=== PATIENT | female | born 1985 | race Two or more races ===

== ENCOUNTER 2019-04-22 01:53 | Emergency (ER) | payer SELFPAY ==
[~2019-04-22] VITALS: Ht 157.5 cm; Wt 74.8 kg
--- NOTE | 2019-04-22 02:15 | NUR ---
ED Nurse Note: Walk-in patient presents with complaints of difficulty breathing for the past two days. Patient reports cough x 2 weeks. ERMD informed, will continue.
[2019-04-22 02:16] VITALS: BP 136/89
--- NOTE | 2019-04-22 02:23 | Emergency Room Report ---
History of Present Illness General Chief Complaint: Upper Respiratory Illness Source: Patient Present Illness HPI Is a 33-year-old female with no past medical history patient presents with complaint shortness of breath. Onset around midnight, which is about 2 hours prior to arrival. She said that she has cough and runny nose for last couple days. Occasion she said she get wheezing but that resolved quickly. No diagnosis of asthma. No history of asthma as a kid. Worse with inspiration. Audible wheezing. Worse with exertion. Better with rest. No recent antibiotics. Not on control pill. Allergies: Coded Allergies: No Known Allergies (Unverified , 04/22/19) Patient History Past Medical History: none, see triage record, old chart reviewed Past Surgical History: none Pertinent Family History: none Social History: Denies: smoking Last Menstrual Period: 04/16/19 Now: No : 0 Para: 0 Immunizations: other Reviewed Nursing Documentation: PMH: Agreed; PSxH: Agreed Nursing Documentation-PMH Past Medical History: No Stated History Review of Systems Eye: Denies: eye pain, blurred vision ENT: Denies: ear pain, nose congestion, throat swelling Respiratory: Reports: cough, shortness of breath, wheezing Cardiovascular: Denies: chest pain, palpitations Gastrointestinal: Denies: abdominal pain, diarrhea, nausea, vomiting Musculoskeletal: Denies: back pain, joint pain Skin: Denies: rash Neurological: Denies: headache, numbness Endocrine: Denies: increased thirst, increased urine Hematologic/Lymphatic: Denies: easy bruising All Other Systems: negative except mentioned in HPI Physical Exam Vital Signs Date Time Temp Pulse Resp B/P (MAP) Pulse Ox O2 Delivery O2 Flow Rate FiO2 04/22/19 02:08 98.2 101 19 136/89 (105) 91 Room Air Vitals with hypoxia Sp02 EP Interpretation: reviewed, abnormal General Appearance: well appearing, alert, mild distress Head: normocephalic, atraumatic Eyes: bilateral eye PERRL, bilateral eye EOMI ENT: hearing grossly normal, normal pharynx Neck: full range of motion, supple, no meningismus Respiratory: chest non-tender, respiratory distress - mild, decreased breath sounds, accessory muscle use, wheezing Cardiovascular #1: regular rate, rhythm, no murmur Gastrointestinal: normal bowel sounds, non tender, no mass, no organomegaly, no bruit, non-distended Musculoskeletal: back normal, gait/station normal, normal range of motion Psychiatric: mood/affect normal Medical Decision Making Diagnostic Impression: Primary Impression: Asthma with acute exacerbation Qualified Codes: J45.21 - Mild intermittent asthma with (acute) exacerbation ER Course This patient presents with wheezing. She most likely has asthma. Much improved after breathing treatment. Steroid started. Will discharge home. No evidence of ACS, PE, dissection to name a few. Chest X-Ray Diagnostic Results Chest X-Ray Diagnostic Results : Chest X-Ray Ordered: Yes # of Views/Limited/Complete: 1 View Indication: Shortness of Breath EP Interpretation: Yes Interpretation: no consolidation, no effusion, no pneumothorax, no acute cardiopulmonary disease Impression: No acute disease Electronically Signed by: Vincent Soto MD Last Vital Signs Date Time Temp Pulse Resp B/P (MAP) Pulse Ox O2 Delivery O2 Flow Rate FiO2 04/22/19 02:16 101 19 Room Air 04/22/19 02:16 98.2 136/89 91 Status: improved Disposition: HOME, SELF-CARE Condition: Improved Scripts Prednisone* (PREDNISONE*) 20 Mg Tablet 40 MG ORAL DAILY, #8 TAB Prov: Vincent Soto MD 04/22/19 Albuterol Sulfate* (ALBUTEROL SULFATE MDI*) 8.5 Gm Hfa.aer.ad 2 PUFF INH Q4H PRN for cough/wheezing, #1 EA 0 Refills Prov: Vincent Soto MD 04/22/19 Additional Instructions: Follow-up with your doctor in 7 days. Return if symptoms worsen. Vincent Soto MD Apr 22, 2019 02:23
[2019-04-22] MEDS ORDERED: Albuterol ud Inhalation HHN ONE (02:30)
[2019-04-22] MEDS ORDERED: Ipratropium 0.02% Inh Soln 2.5ml UD HHN ONE (02:30)
--- NOTE | 2019-04-22 02:35 | NUR ---
ED Nurse Note: Patient tolerating breathing treatment well, Satting at 99%. RT at bedside. Will continue to monitor.
--- NOTE | 2019-04-22 03:09 | Diagnostic Imaging Report ---
EXAM: XR Chest, 1 View CLINICAL HISTORY: SOB TECHNIQUE: Frontal view of the chest. COMPARISON: No relevant prior studies available. FINDINGS: Lungs: Normal lung volumes. No evidence of airspace consolidation. No pulmonary edema. Pleural space: Unremarkable. No pneumothorax. Heart: Unremarkable. No cardiomegaly. Mediastinum: Unremarkable. No mediastinal widening or shift. Bones joints: Unremarkable. No acute osseous abnormality. IMPRESSION: No airspace consolidation or pulmonary edema.
[2019-04-22 03:20] VITALS: BP 136/89
[2019-04-22] MEDS ORDERED: ALBUTEROL SULF8.5 GM INH (03:20)
[2019-04-22] MEDS ORDERED: PREDNISONE20 MG ORAL (03:20)
--- NOTE | 2019-04-22 03:20 | NUR ---
ED Nurse Note: Patient cleared for discharge by ERMD. Patient has no s/s of acute distress. Patient breathing is even and unlabored. Patient ID band removed, Patient IV removed. Patient departed with all belongings.
== END 2019-04-22 03:20 | disposition home or self-care (01) ==
LOC: EMR 01:53
DX: J45.21 Mild intermittent asthma with (acute) exacerbation (principal)
CPT/HCPCS: 71045; 94640; 99283; J7512